=== PATIENT | female | born 1955 | race African-American/Black ===

== ENCOUNTER → 2018-05-10 09:00 | Outpatient (CLI) | payer MEDICARE, BC, SELFPAY ==
--- NOTE | 2018-05-10 09:00 | ASPS_PTH ---
PATIENT: ELENA HEAD LOC: [facility] U#:[id number] AGE/SX: 69/F ROOM: RE05/10/[address]: Dr. Jim Zamarripa MD : 1955 BED: DIS: SPEC #: [id number] RECD: 05/12/18 07:48 STATUS: PILAR LILY #: [id number] NIHARIKA: 05/10/18 09:[address]: Jim Zamarripa DEPT: CYTOLOGY RECD BY: Golden Vieira Tissues: A - Thyroid gland, NOS B - Thyroid isthmus Procedures: Pap Stain (control) Special Stain Group II Surgery Specimen Level V Cytology Other HEADER OPERATION: Thyroid FNA x2 PRE-OP DIAGNOSIS: Multiple thyroid nodules TISSUE SUBMITTED: A ? Left thyroid 6 slides, B ? Isthmus 6 slides DIAGNOSIS CYTOLOGY A. Left thyroid nodule, FNA (smears): Consistent with benign follicular nodule. See cytology study and comment. B. Isthmus nodule, FNA (smears): Consistent with benign follicular nodule with focal cystic changes. See cytology study and comment. SJ:rg 05/13/18 COMMENT Correlation with clinical, radiologic findings and appropriate follow up are necessary. CYTOLOGY STUDY Slides are reviewed. A. The specimen is adequate for evaluation. The specimen consists of benign follicular cells, lymphocytes and minimal colloid. B. The specimen is adequate for evaluation. The specimen consists of benign follicular cells, macrophages and minimal colloid. CYTOLOGY GROSS A - Received are six smears labeled with the patient's name and designated per the requisition as left thyroid. Submitted for staining. B - Received are six smears labeled with the patient's name and designated per the requisition as isthmus. Submitted for staining. 05/12/18 TC:5 CPT: 96253 x2
== END ==
PROVIDERS: Visit Provider Surgery
DX: E04.1 Nontoxic single thyroid nodule (principal)
CPT/HCPCS: 88161; 88307; 88313

== ENCOUNTER 2018-06-16 12:14 | Observation (INO) | payer MEDICARE, BC, SELFPAY ==
[2018-06-16] VITALS (12 sets, daily range): BP systolic 124–182; BP diastolic 66–97; PULSE 72–121; RESP 14–18; TEMP 36.2–36.8; O2SAT 91–100; BMI 43.7; BMI 44.0
--- NOTE | 2018-06-16 | THYROID_PTH ---
PATIENT: ELENA HEAD LOC: [facility] U#:[id number] AGE/SX: 62/F ROOM: MI316 RE06/16/[address]: Dr. Jim Zamarripa MD : 1955 BED: 1 DIS: 06/17/2018 SPEC #: [id number] RECD: 06/16/18 14:26 STATUS: PILAR REIleana #: [id number] NIHARIKA: 06/16/18 00:[address]: Jim Zamarripa DEPT: SURGICAL PATHOLOGY RECD BY: Tyler Willis ENTERED: 06/16/18 14:26 SP TYPE: THYROID OTHR DR: Dr. Sola Rosales MD Tissues: Thyroid gland, NOS Procedures: Surgery Specimen Level V HEADER OPERATION: Total thyroidectomy PRE-OP DIAGNOSIS: Multiple thyroid nodules TISSUE SUBMITTED: Thyroid ? suture in anterior aspect of right lobe MICROSCOPIC DIAGNOSIS Thyroid, total thyroidectomy: Multinodular goiter. SJ:tomeka 9/19/18 COMMENT Please make reference to previous specimen ([id number]) left thyroid nodule, FNA with diagnosis of benign follicular nodule and isthmus nodule, FNA with diagnosis of benign follicular nodule with focal cystic changes. MICROSCOPIC DESCRIPTION Slides are reviewed. GROSS DESCRIPTION Received in fixative is one container labeled with the patient's name and designated thyroid. The specimen consists of a total thyroidectomy specimen weighing 31.3 gm. The specimen is oriented by a suture at the anterior aspect of the right lobe. The right lobe measures 6 x 3.5 x 2 cm and the left lobe measures 5 x 2.5 x 2.5 cm and the isthmus measures 1 x 0.5 x 0.4 cm. No external parathyroid tissue is identified. The specimen appears to be partially disrupted. The specimen is inked as follows: anterior margin right lobe ? blue, anterior margin isthmus ? yellow, anterior margin left lobe ? green, posterior surface right lobe, left lobe and isthmus ? black. Sections of the right lobe reveal multiple nodules. The largest nodule measures 2 cm in greatest dimension. The largest nodule is present in the lower pole of the thyroid and shows focal cystic changes. Sections of the left lobe reveal an ill-defined nodule. Sections of the isthmus reveal a nodule measuring 0.5 cm in greatest dimension and shows colloidy cut surfaces. Pca sections are submitted in 15 cassettes as follows: 1 ? isthmus, entirely submitted, 2-8 ? right lobe (2 containing most superior portion and 8 containing most inferior portion), 915 ? left lobe (9 containing most superior portion and 15 containing most inferior portion). / SUDARSHAN:tomeka 06/17/18 TC:5 CPT: 71062
--- NOTE | 2018-06-16 07:22 | EKG12_ITS ---
Test Reason : PRE OP Blood Pressure : / mmHG Vent. Rate : 078 BPM Atrial Rate : 078 BPM P-R Int : 172 ms QRS Dur : 086 ms QT Int : 396 ms P-R-T Axes : 027 013 012 degrees QTc Int : 451 ms Normal sinus rhythm Normal ECG No previous ECGs available Confirmed by CAROLYN CESAR, SOLITARIO ([id number]), newspaper or periodical editor NEERAJ RAYMUNDO ([id number]) on 06/18/2018 3:33:40 PM Referred By: Jim Zamarripa Confirmed By:SOLITARIO LEON MD
[2018-06-16 07:49] LABS: Hematocrit 36.5 % (37-47); Hemoglobin 12.1 g/dl (12.0-15.0); Mean Corp Hgb Conc 33.2 g/gl (32-36); Mean Corpuscular Hgb 27.3 pg (27.0-32.0); Mean Corpuscular Volume 82.4 fL (81-99); Mean Platelet Vol. 10.7 fl (6.2-12.0); Platelet Count 225 K/mm3 (150-450); RBC Distribution Width CV 15.7 % (11.6-14.6); RBC Distribution Width SD 47.5 fl (35.1-43.9); Red Blood Count 4.43 M/mm3 (4.2-5.4); White Blood Count 5.5 K/mm3 (4.4-11.0)
[2018-06-16 07:52] LABS: Scan Indicated on CBC? Y/N NO
[2018-06-16 08:01] LABS: Anion Gap 11 (5-15); BUN 23 mg/dL (7-18); BUN/Creat Ratio 28.9 RATIO (10-20); Calcium,Total 8.8 mg/dL (8.5-10.1); Chloride 106 mmol/L (98-107); EST Glomerular Filtration Rate 77 mL/min (>60); Est Glom Filt Rate - Afr Amer 94 mL/min (>60); Estimated Creatinine Clearance 57.67 ml/min; Glucose 97 mg/dL (74-106); Phosphorus 3.4 mg/dL (2.5-4.9); Sodium Level 142 mmol/L (136-145)
--- NOTE | 2018-06-16 08:51 | PCM.CONS.B ---
Problem List (1) Multiple thyroid nodules Status: Acute - Consult Date of Consult: 06/16/18 Intake Vital Signs 06/16/18 Height 5 ft 2 in 06/16/18 Weight: 230 lb 06/16/18 Body Mass Index (BMI) 43.0 06/16/18 Blood Pressure 150/70 06/16/18 Blood Pressure Location Lt brachial 06/16/18 Blood Pressure Position Sitting 06/16/18 Respiratory Rate 16 06/16/18 Pulse Rate 78 06/16/18 Pulse Source Monitor 06/16/18 Temperature 97.6 F 06/16/18 Temperature Source Temporal 06/16/18 Pulse Ox 97 06/16/18 Oxygen Delivery Method room air Intake Visit Reasons: Thyroid Nodule left side Allergies cephalexin [From Keflex] Allergy (Unknown, Verified 04/30/18 09:13) Unknown Medications acetaminophen ER 650 mg tablet,extended release PO 8 Days #50 04/14/18 [History Confirmed 04/30/18] amlodipine 2.5 mg tablet PO 90 Days #180 04/14/18 [History Confirmed 04/30/18] atorvastatin 20 mg tablet PO 90 Days #90 04/14/18 [History Confirmed 04/30/18] cholecalciferol (vitamin D3) 2,000 unit capsule 2,000 unit PO QDAY 04/14/18 [History Confirmed 04/30/18] dimethyl fumarate 240 mg capsule,delayed release PO 30 Days #60 04/14/18 [History Confirmed 04/30/18] multivitamin tablet 1 tab PO QDAY 04/14/18 [History Confirmed 04/30/18] naproxen sodium 220 mg tablet 220 mg PO BID 04/14/18 [History Confirmed 04/30/18] omeprazole magnesium 20 mg tablet,delayed release 20 mg PO QDAY 04/14/18 [History Confirmed 04/30/18] oxybutynin chloride ER 15 mg tablet,extended release 24 hr PO 90 Days #180 04/14/18 [History Confirmed 04/30/18] PFS Medical History History of partial surgical removal of colon (Acute) Anxiety and depression (Chronic) Arthritis (Chronic) Back problem (Chronic) HTN (hypertension) (Chronic) High cholesterol (Chronic) Kidney stones (Chronic) Osteoarthritis (Chronic) Overactive bladder (Chronic) Vision problems (Chronic) History of blood transfusion (Resolved) Surgical History History of back surgery (Acute) History of foot surgery (Acute) History of hysterectomy (Acute) History of rotator cuff surgery (Acute) Family History Mother Arthritis Grandmother Tuberculosis Sister Cancer Diabetes Hypertension High cholesterol Sister Diabetes High cholesterol Hypertension Sister Diabetes High cholesterol Hypertension Social History Smoking Status: Heavy Smoker (>10/day) how long ago did patient quit smokin years second hand exposure: No alcohol intake: current alcohol intake frequency: holidays/special occasions only Alcohol type: hard liquor substance use type: does not use what type of physical activity do you participate in: none HPI: Patient is a 62 y/o female I am seeing for an update history and physical for an elective Thyroidectomy. Patient denies recent hospitalizations or illnesses. Patient denies previous myocardial infarction, stroke, blood clots. Patient's previous history per Dr. Zamarripa: ELENA HEAD, is a 62 F who presents to the office today for surgical consultation regarding multiple thyroid nodules. The patient is referred by BUZZ Mcduffie and a written copy of my surgical consult and recommendations will be returned to her. Patient is a 62-year-old female. She has had thyroid nodular disease for a period of time. By report in 2012 she had a fine-needle aspiration performed in [place] which was benign. The patient's primary care physician is Dr. Rosales who apparently has recently moved her practice to [facility]. The patient herself lives in [facility]. Recently she states that she thinks that her nodules have become larger. She complains that when eating chips she has choking sensation. She states that she feels like she has a film in her mid neck. Occasionally her voice will be lower but it waxes and wanes. A part of her interesting surgical history is that she claims to have had 3 feet of colon resected for what sounds like polyposis.. She has no personal history of radiation treatment to the head and neck. There is no family history of benign or malignant thyroid disease. Patient has no history of DVT. She has had multiple orthopedic procedures. Per referral note the patient's recent TSH was normal. On February 05, 2018 by [facility] in [facility] the patient had a thyroid ultrasound performed. The right lobe measures 5.3 x 1.8 x 2.1 cm. There is a partially cystic 0.9 x 0.6 x 0.7 cm nodule well-defined. There is also a tiny 0.3 cm cyst. The left lobe measures 7.8 x 3.3 x 3.8 cm. There is a 4 x 3.5 x 4.2 cm heterogenous isoechoic mass that is ill-defined with a few cystic areas. Blood flow is identified within this. Additionally within the isthmus there is a 2.5 x 1.8 x 1.8 cm heterogenous predominantly solid mass with some cystic regions. Ill-defined. The interpretation suggests that on a prior report the isthmus nodule was felt to be 1.9 x 0.8 x 1.8 cm suggesting progression ELENA HEAD, is a 62 F who presents to the office today for post final aspiration follow-up. On May 10, 2018 I performed a ultrasound-guided fine-needle aspiration of a nodule involving her isthmus and left thyroid. Both of these are consistent with benign follicular nodules. The patient however is invited back today because she continues to complain of a pressure fullness with some choking caused by her thyroid. At the time of her fine-needle aspiration we discussed the potential still to pursue thyroid surgery due to the increasing size and multinodular nature and symptoms. ROS General: Yes weight change and fatigue; no appetite, colon cancer, breast cancer or weakness HEENT: No difficulty swallowing, eye injury, eye surgery, swollen glands or hoarseness Endocrine: No thyroid disease, diabetes mellitus, thyroid cancer, Hair loss, heat intolerance or cold intolerance Skin: No rash or changing moles Breast: No left breast lump, right breast lump, breast pain, abnormal mammogram, abnormal US, breast enlargement or nipple discharge Musculoskeletal: Yes back problems and arthritis; no rheumatoid arthritis, gout or joint pain Cardiovascular: Yes high blood pressure; no pacemaker, heart disease, atrial fibrillation, heart attack, heart stent, palpitations, shortness of breat with exertion, chest pain or murmur Psychiatric: No depression, anxiety or hearing voices Respiratory: No shortness of breath, No sleep apnea, No cough, No COPD, No asthma, No emphysema, No wheezing Gastrointestinal: No abdominal pain, No nausea or vomiting, Yes diarrhea, No constipation, No blood in stool, Yes acid reflux, No hemorrhoids, No ulcers, No gallbladder problem, No black,tarry stools Hematologic: No blood thinners, No blood disorders, No bleeding, No anemia, No blood clots Neurologic: No system reviewed and no additional complaints, except as docu, No as per HPI, No abnormal walking, No abnormal hearing, No abnormal movements, No abnormal speech, No behavioral changes, No burning sensations, No confusion, No seizure-like activity, No unsteadiness, No dizziness, No localized weakness, No frequent falls, No headache(s), No lack of coordination, No loss of vision, No memory loss, No numbness, No other visual disturbances, No radiating pain, No restless legs, No sensory deficit, No fainting, No tingling, No tremor(s), No weakness, No other Exam Const General: cooperative, comfortable, no acute distress Nutritional Appearance: obese Orientation: alert, awake, oriented x3 HENMT Head: normal to inspection Eyes General: appearance normal, both eyes and all related structures Neck Other: Fullness of the neck noted. Right thyroid not easily palpable. Isthmus nodule palpable nontender. Dominant left thyroid palpable and low in the neck No cervical adenopathy Carotids are 3+ no bruits Chest Breast Palpation: No nipple discharge Cardio Heart Sounds: no murmurs Neuro Other: Chvostek is negative Abdomen- soft, non-tender. Positive bowel sounds Assessment & Plan Problems 1. Multiple thyroid nodules E04.2 Plan: Dr. Zamarripa will plan to perform a total thyroidectomy. Procedure details, risks and benefits were reviewed. Patient has had the opportunity to ask and have questions answered. Patient desires to proceed with the proposed procedure. Code Visit Inpatient E&M: 70804 Subs Hosp L1 - Update H&P; No charge
--- NOTE | 2018-06-16 09:03 | CON.PCM_ITS ---
Problem List (1) Multiple thyroid nodules Status: Acute - Consult Date of Consult: 06/16/18 Intake Vital Signs 06/16/18 Height 5 ft 2 in 06/16/18 Weight: 230 lb 06/16/18 Body Mass Index (BMI) 43.0 06/16/18 Blood Pressure 150/70 06/16/18 Blood Pressure Location Lt brachial 06/16/18 Blood Pressure Position Sitting 06/16/18 Respiratory Rate 16 06/16/18 Pulse Rate 78 06/16/18 Pulse Source Monitor 06/16/18 Temperature 97.6 F 06/16/18 Temperature Source Temporal 06/16/18 Pulse Ox 97 06/16/18 Oxygen Delivery Method room air Intake Visit Reasons: Thyroid Nodule left side Allergies cephalexin [From Keflex] Allergy (Unknown, Verified 04/30/18 09:13) Unknown Medications acetaminophen ER 650 mg tablet,extended release PO 8 Days #50 04/14/18 [History Confirmed 04/30/18] amlodipine 2.5 mg tablet PO 90 Days #180 04/14/18 [History Confirmed 04/30/18] atorvastatin 20 mg tablet PO 90 Days #90 04/14/18 [History Confirmed 04/30/18] cholecalciferol (vitamin D3) 2,000 unit capsule 2,000 unit PO QDAY 04/14/18 [ History Confirmed 04/30/18] dimethyl fumarate 240 mg capsule,delayed release PO 30 Days #60 04/14/18 [ History Confirmed 04/30/18] multivitamin tablet 1 tab PO QDAY 04/14/18 [History Confirmed 04/30/18] naproxen sodium 220 mg tablet 220 mg PO BID 04/14/18 [History Confirmed 04/30/18 ] omeprazole magnesium 20 mg tablet,delayed release 20 mg PO QDAY 04/14/18 [ History Confirmed 04/30/18] oxybutynin chloride ER 15 mg tablet,extended release 24 hr PO 90 Days #180 04/14 [History Confirmed 04/30/18] PFS Medical History History of partial surgical removal of colon (Acute) Anxiety and depression (Chronic) Arthritis (Chronic) Back problem (Chronic) HTN (hypertension) (Chronic) High cholesterol (Chronic) Kidney stones (Chronic) Osteoarthritis (Chronic) Overactive bladder (Chronic) Vision problems (Chronic) History of blood transfusion (Resolved) Surgical History History of back surgery (Acute) History of foot surgery (Acute) History of hysterectomy (Acute) History of rotator cuff surgery (Acute) Family History Mother Arthritis Grandmother Tuberculosis Sister Cancer Diabetes Hypertension High cholesterol Sister Diabetes High cholesterol Hypertension Sister Diabetes High cholesterol Hypertension Social History Smoking Status: Heavy Smoker (>10/day) how long ago did patient quit smokin years second hand exposure: No alcohol intake: current alcohol intake frequency: holidays/special occasions only Alcohol type: hard liquor substance use type: does not use what type of physical activity do you participate in: none HPI: Patient is a 62 y/o female I am seeing for an update history and physical for an elective Thyroidectomy. Patient denies recent hospitalizations or illnesses. Patient denies previous myocardial infarction, stroke, blood clots. Patient's previous history per Dr. Zamarripa: ELENA HEAD, is a 62 F who presents to the office today for surgical consultation regarding multiple thyroid nodules. The patient is referred by BUZZ Mcduffie and a written copy of my surgical consult and recommendations will be returned to her. Patient is a 62-year-old female. She has had thyroid nodular disease for a period of time. By report in 2012 she had a fine-needle aspiration performed in [place] which was benign. The patient's primary care physician is Dr. Rosales who apparently has recently moved her practice to [facility]. The patient herself lives in [facility]. Recently she states that she thinks that her nodules have become larger. She complains that when eating chips she has choking sensation. She states that she feels like she has a film in her mid neck. Occasionally her voice will be lower but it waxes and wanes. A part of her interesting surgical history is that she claims to have had 3 feet of colon resected for what sounds like polyposis.. She has no personal history of radiation treatment to the head and neck. There is no family history of benign or malignant thyroid disease. Patient has no history of DVT. She has had multiple orthopedic procedures. Per referral note the patient's recent TSH was normal. On February 05, 2018 by [place] in [facility] the patient had a thyroid ultrasound performed. The right lobe measures 5.3 x 1.8 x 2.1 cm. There is a partially cystic 0.9 x 0.6 x 0.7 cm nodule well-defined. There is also a tiny 0.3 cm cyst. The left lobe measures 7.8 x 3.3 x 3.8 cm. There is a 4 x 3.5 x 4.2 cm heterogenous isoechoic mass that is ill-defined with a few cystic areas. Blood flow is identified within this. Additionally within the isthmus there is a 2.5 x 1.8 x 1.8 cm heterogenous predominantly solid mass with some cystic regions. Ill-defined. The interpretation suggests that on a prior report the isthmus nodule was felt to be 1.9 x 0.8 x 1.8 cm suggesting progression ELENA HEAD, is a 62 F who presents to the office today for post final aspiration follow-up. On May 10, 2018 I performed a ultrasound-guided fine- needle aspiration of a nodule involving her isthmus and left thyroid. Both of these are consistent with benign follicular nodules. The patient however is invited back today because she continues to complain of a pressure fullness with some choking caused by her thyroid. At the time of her fine-needle aspiration we discussed the potential still to pursue thyroid surgery due to the increasing size and multinodular nature and symptoms. ROS General: Yes weight change and fatigue; no appetite, colon cancer, breast cancer or weakness HEENT: No difficulty swallowing, eye injury, eye surgery, swollen glands or hoarseness Endocrine: No thyroid disease, diabetes mellitus, thyroid cancer, Hair loss, heat intolerance or cold intolerance Skin: No rash or changing moles Breast: No left breast lump, right breast lump, breast pain, abnormal mammogram , abnormal US, breast enlargement or nipple discharge Musculoskeletal: Yes back problems and arthritis; no rheumatoid arthritis, gout or joint pain Cardiovascular: Yes high blood pressure; no pacemaker, heart disease, atrial fibrillation, heart attack, heart stent, palpitations, shortness of breat with exertion, chest pain or murmur Psychiatric: No depression, anxiety or hearing voices Respiratory: No shortness of breath, No sleep apnea, No cough, No COPD, No asthma, No emphysema, No wheezing Gastrointestinal: No abdominal pain, No nausea or vomiting, Yes diarrhea, No constipation, No blood in stool, Yes acid reflux, No hemorrhoids, No ulcers, No gallbladder problem, No black,tarry stools Hematologic: No blood thinners, No blood disorders, No bleeding, No anemia, No blood clots Neurologic: No system reviewed and no additional complaints, except as docu, No as per HPI, No abnormal walking, No abnormal hearing, No abnormal movements, No abnormal speech, No behavioral changes, No burning sensations, No confusion, No seizure-like activity, No unsteadiness, No dizziness, No localized weakness, No frequent falls, No headache(s), No lack of coordination, No loss of vision, No memory loss, No numbness, No other visual disturbances, No radiating pain, No restless legs, No sensory deficit, No fainting, No tingling, No tremor(s), No weakness, No other Exam Const General: cooperative, comfortable, no acute distress Nutritional Appearance: obese Orientation: alert, awake, oriented x3 HENMT Head: normal to inspection Eyes General: appearance normal, both eyes and all related structures Neck Other: Fullness of the neck noted. Right thyroid not easily palpable. Isthmus nodule palpable nontender. Dominant left thyroid palpable and low in the neck No cervical adenopathy Carotids are 3+ no bruits Chest Breast Palpation: No nipple discharge Cardio Heart Sounds: no murmurs Neuro Other: Chvostek is negative Abdomen- soft, non-tender. Positive bowel sounds Assessment & Plan Problems 1. Multiple thyroid nodules E04.2 Plan: Dr. Zamarripa will plan to perform a total thyroidectomy. Procedure details, risks and benefits were reviewed. Patient has had the opportunity to ask and have questions answered. Patient desires to proceed with the proposed procedure. Code Visit Inpatient E&M: 18726 Subs Hosp L1 - Update H&P; No charge
--- NOTE | 2018-06-16 10:35 | PCM.DC.GS ---
Discharge Diet: Light diet - advance as tolerated - if you have questions about your diet instructions, please talk to you doctor. Discharge Activity: May Not Drive - for 1 week or while taking narcotic pain medicine. May shower in (days): 1 Lifting Restrictions: 10 pounds Call your doctor if your incision/area has: Continuous Slow Oozing, Sudden Increased Bleeding, Increased Pain/ Swelling, Increased Redness, Foul Smelling Discharge Call your doctor if you observe: Fever of 101 or Higher Suture Line Care: Avoid Pulling/Pushing, Avoid Pinching/Bending Additional Dressing/Incision Instructions:: Your neck dressing may be removed on Saturday, June 17. The surgical glue may remain in place for at least an additional week. You may shower over the glued incision. Allergies/Adverse Reactions: Allergies cephalexin [From Keflex] Allergy (Unknown, Verified 06/12/18 12:47) Unknown Medications to take at Discharge acetaminophen ER 650 mg tablet,extended release 650 mg PO DAILY 8 Days #50 04/14/18 amlodipine 2.5 mg tablet 2.5 mg PO BID 90 Days #180 04/14/18 atorvastatin 20 mg tablet 20 mg PO QHS 90 Days #90 04/14/18 cholecalciferol (vitamin D3) 2,000 unit capsule 2,000 unit PO QDAY 04/14/18 dimethyl fumarate 240 mg capsule,delayed release 240 mg PO BID 30 Days #60 04/14/18 multivitamin tablet 1 tab PO QDAY 04/14/18 omeprazole magnesium 20 mg tablet,delayed release 20 mg PO QDAY 04/14/18 oxybutynin chloride ER 15 mg tablet,extended release 24 hr 15 mg PO BID 90 Days #180 04/14/18 Acetaminophen/Diphenhydramine [Tylenol Pm Ex-Strength Caplet] 1 each PO QHS 06/12/18 Loperamide [Imodium] 2 mg PO PRN PRN 06/12/18 Naproxen Sodium [Aleve] 220 mg PO PRN PRN 06/12/18 Hydrocodone Bitart/Apap 5-325 [Alvin 5MG-325MG] 1 tablet PO Q6H PRN PRN 3 Days #8 tablet 06/16/18 Levothyroxine Sodium [Synthroid] 150 mcg PO DAILY #90 tab 06/16/18 The following prescriptions were given: Hydrocodone Bitart/Apap 5-325 [Alvin 5MG-325MG] 1 tablet PO Q6H PRN PRN 3 Days #8 tablet PRN Reason: Pain Levothyroxine Sodium [Synthroid] 150 mcg PO DAILY #90 tab Primary Care Physician: Sola Rosales MD [Primary Care Provider] - Test Results: Test results from this visit will be discussed in further detail at your follow-up appointment, if applicable. Please Follow Up With: Jim Zamarripa MD - [phone] When: Call to make an appointment to be seen in about 10 days.
[2018-06-16] MEDS: Bupivacaine Mpf 0.5% 30 ML VIAL (12:16)
--- NOTE | 2018-06-16 12:18 | PCM.OPRPT ---
Problem List (1) Thyromegaly Status: Acute Report of Operation Date of Procedure: 06/16/18 Pre-Operative Diagnosis: Symptomatic thyromegaly Post-Operative Diagnosis: Pathology pending Surgery/Procedure Performed:: Total thyroidectomy Description of Surgical Findings:: Timeout informed consent was obtained. Taken out room. She was placed on the table. She underwent general anesthesia. The neck was supported with soft frozen gel head. It was gently hyperextended. The neck was sterilely prepped and draped. A transverse suprasternal incision was created. Sharp dissection carried down through the subcutaneous tissue. The platysma was incised. Platysmal flaps were raised. The strap muscles were incised vertically. Wheeler was gained of the thyroid. The left lobe was addressed first. Carefully and tediously the musculature was dissected off the anterior surface of the left lobe of thyroid. The isthmus with fairly large as well. The gland was rotated medially. Superior portion of the gland was addressed with superior vessel secured with hemoclips and Harmonic scalpel indicated. The inferior pole was addressed is the same. The middle thyroidal vein was secured with the harmonic. Then the gland was rotated great care was taken to inspect for the recurrent laryngeal nerve was identified and preserved. Superior and inferior parathyroids also felt to been preserved as dissection was performed directly upon the posterior aspect of the gland. I then dissected ligament of Vincent taking great care to clearance with the recurrent laryngeal nerve. I dissected over the anterior surface of the trachea. I then addressed the right lobe of the thyroid in a very similar fashion of the left. Again the recurrent laryngeal nerve on the right was identified and carefully preserved as was parathyroid superiorly and inferiorly. The gland was then completely dissected free hemostasis was nicely intact neck was inspected palpation failed to reveal any suspicious adenopathy there was no evidence of any invasion. Fibular was placed on each side of the neck. The strap muscles approximated midline with interrupted 3-0 Vicryl for the platysma was approximated the same skin edges proximate interrupted 5-0 Vicryl subdermal stitches. The doris-incisional areas incised with 20 cc of 0.5% Marcaine. Surgical glue was applied followed by Telfa and tape dressings. Sponge and instrument and needle counts were reported the surgeon to be correct. Specimens total thyroid. Drains none. Blood loss minimal. She was taken to the recovery room and 70 condition without apparent complication. Jim Zamarripa M.D., F.A.C.S. Type of Anesthesia:: General Anesthesiologist: Senthil Swann
--- NOTE | 2018-06-16 12:23 | PCM.PN.BLA ---
Progress Note Neck surgery. Will avoid pharmcologic anticoagulants because of bleeding risk . Will use SCDs and mobilization. Akash
[2018-06-16] MEDS: Ondansetron 4 MG/2 ML Vial IV (15:03)
[2018-06-16] MEDS: 0.9% NaCl Peripheral Flush Adult/Peds IV (15:05)
[2018-06-16] MEDS: Calcium Carbonate 500 MG Tablet 1000 MG PO (16:26)
[2018-06-16 16:49] LABS: Calcium,Total 8.7 mg/dL (8.5-10.1)
--- NOTE | 2018-06-16 19:04 | PCM.PN.BLA ---
Progress Note Pt very stable Neuro intact Neck supple Ready for discharge but her ride has left Will plan discharge in a.m.
[2018-06-17 02:15] VITALS: BP 151/72; PULSE 107; RESP 16; TEMP 37.6; O2SAT 94
[2018-06-17] MEDS: Lactated Ringers 1,000 ML 30 ML IV (05:14)
[2018-06-17] MEDS: Levothyroxine 150 MCG Tablet PO (05:14)
--- NOTE | 2018-06-17 05:30 | PCM.PN.SRG ---
Patient Problems: Active and Suspected Problems (Last Reviewed 05/15/18 @ 10:18 by Mary Peraza) Thyromegaly (Acute) Subjective: Pt without complaint No changes from last night - Physical Exam HEENT: - - supple, NT voice clear Vital Signs Temp Pulse Resp BP Pulse Ox 99.7 F H 107 H 16 151/72 H 94 06/17/18 02:15 06/17/18 02:15 06/17/18 02:15 06/17/18 02:15 06/17/18 02:15 Oxygen Flow Rate (L/min) 2 Oxygen Delivery Method Room Air Weight: 239 lb 6.752 oz Body Mass Index (BMI) 44.0 Intake and Output for Last 24 Hours 06/15/18 06/16/18 06/17/18 23:59 23:59 23:59 Intake Total 1687 / 1687 642 / 642 Output Total 200 / 200 1125 / 1125 Balance 1487 / 1487 -483 / -483 Laboratory Tests Past 24 Hrs 06/16/18 06/16/18 06/16/18 07:28 07:28 16:21 WBC 5.5 RBC 4.43 Hgb 12.1 Hct 36.5 L MCV 82.4 MCH 27.3 MCHC 33.2 RDW 15.7 H RDW Differential 47.5 H Plt Count 225 MPV 10.7 Sodium 142 Potassium 4.0 Chloride 106 Carbon Dioxide 25.0 Anion Gap 11 BUN 23 H Creatinine 0.80 Estim Creat Clear Calc 57.67 Est GFR (MDRD) Af Amer 94 Est GFR (MDRD) Non-Af 77 BUN/Creatinine Ratio 28.9 H Glucose 97 Calcium 8.8 8.7 Phosphorus 3.4 Medical Necessity - Tobacco Use Smoking Status: Former smoker Assessment/Plan All Active Problems (Last Reviewed 05/15/18 @ 10:18 by Mary Peraza) Thyromegaly (Acute) Hx of biopsy (Acute) Multiple thyroid nodules (Acute) History of partial surgical removal of colon (Acute) History of foot surgery (Acute) History of rotator cuff surgery (Acute) History of back surgery (Acute) History of hysterectomy (Acute) History of blood transfusion (Resolved) Ready for discharge
[2018-06-17 07:16] VITALS: BP 172/81; PULSE 99; RESP 18; TEMP 37.1; O2SAT 94
[2018-06-17] MEDS: Calcium Carbonate 500 MG Tablet 1000 MG PO (07:22)
[2018-06-17] MEDS: amLODIPine 2.5 MG Tablet PO (07:24)
[2018-06-17] MEDS: Pantoprazole Sodium 20 MG Tablet PO (07:24)
[2018-06-17] MEDS: Tolterodine Tartrate 4 MG CAP.SA PO (07:25)
[2018-06-17] MEDS: Multivitamins,Therapeutic Tablet 1 TABLET PO (09:19)
[2018-06-17 09:22] VITALS: BP 140/69; PULSE 114
== END 2018-06-17 09:47 | disposition home or self-care (01) ==
LOC: SDC 12:28
PROVIDERS: Admitting Provider Surgery; Family Provider Family Medicine; PCP Family Medicine; Visit Provider Surgery
DX: E04.2 Nontoxic multinodular goiter (principal); F41.9 Anxiety disorder, unspecified; Z79.899 Other long term (current) drug therapy; M19.90 Unspecified osteoarthritis, unspecified site; I10 Essential (primary) hypertension; E78.00 Pure hypercholesterolemia, unspecified; K21.9 Gastro-esophageal reflux disease without esophagitis; Z87.891 Personal history of nicotine dependence; G35 Multiple sclerosis
CPT/HCPCS: 00320; 60240; 36415; 80048; 82310; 84100; 85027; 88307; 93005; 96374; 97802; 99218; J7120; A4216; G0378; G0379; J2405